=== PATIENT | male | born 1960 | race Hispanic/Latino ===

== ENCOUNTER 2022-10-18 08:49 | Emergency (ER) | payer BC ==
[2022-10-18] MEDS ORDERED: Ibuprofen 800 MG TAB ONE (09:29)
[2022-10-18] MEDS ORDERED: Acetaminophen 500 MG TAB ONE (09:29)
[2022-10-18] MEDS ORDERED: Methocarbamol 500 MG TAB PO SCH (10:00)
[2022-10-18] MEDS ORDERED: Lidocaine 5% Patch TD SCH (10:00)
== END 2022-10-18 11:12 | disposition home or self-care (01) ==
LOC: ERS 08:49
DX: M54.41 Lumbago with sciatica, right side (principal); I10 Essential (primary) hypertension; Z87.891 Personal history of nicotine dependence; Z79.899 Other long term (current) drug therapy
CPT/HCPCS: 99283